=== PATIENT | female | born 1940 | race Caucasian/White ===

== ENCOUNTER 2018-01-26 02:49 | Emergency (ER) | payer OTHER ==
[~2018-01-26] VITALS: Ht 167.6 cm; Wt 79.4 kg
[2018-01-26 03:15] VITALS: BP 127/56
[2018-01-26 04:13] LABS: Urine Blood 3+ /uL (Negative); Urine Specific Gravity 1.018 (1.001-1.035); Urine WBC 154 /hpf (0 - 5); Urine WBC Clumps PRESENT /hpf (None Seen)
[2018-01-26 04:16] LABS: Urine Bacteria FEW /hpf (None Seen)
[2018-01-26] MEDS ORDERED: cefTRIAXone SOD 1,000 MG VL IM ONE (05:45)
[2018-01-26] MEDS ORDERED: PHENAZOPYRIDINE HCL 100 MG TAB PO ONE (05:45)
== END 2018-01-26 05:53 | disposition home or self-care (01) ==
LOC: ER 03:00
DX: N39.0 Urinary tract infection, site not specified (principal)
CPT/HCPCS: 81001; 99283; J0696

== ENCOUNTER → 2018-02-25 | Outpatient (CLI) | payer OTHER ==
[2018-02-25 12:04] LABS: Urine Blood Negative /uL (Negative); Urine Specific Gravity 1.011 (1.001-1.035)
[2018-02-25 12:15] LABS: Basophils # (auto) 0 uL; Basophils % (auto) 0.5 % (0.0-2.0); Eosinophils # (auto) 0.2 uL; Hematocrit 46.7 % (36.0-46.0); Lymphocytes # (auto) 2.5 uL; Lymphocytes % (auto) 31.5 % (10.0-50.0); Mean Corpuscular Hemoglobin 32.1 pg (28.0-32.0); Mean Corpuscular Hgb Conc. 34.3 g/dL (32.0-36.0); Mean Corpuscular Volume 93.5 fL (80.0-100.0); Monocytes # (auto) 0.7 uL; Monocytes % (auto) 8.4 % (0.0-12.0); Neutrophils # (auto) 4.5 uL; Neutrophils % (auto) 56.6 % (37.0-80.0); Nucleated Red Blood Cells % 0.2 %; Platelet Count (auto) 275 10^3/uL (140-450); Red Blood Cells 4.99 10^6/uL (4.0-5.20); Red Cell Distribution Width 13.9 % (11.8-14.3)
[2018-02-25 13:01] LABS: Cholesterol 228 mg/dL (< 200); HDL Cholesterol 59 mg/dL (40-59); LDL Cholesterol 163 mg/dL (< 100); Triglycerides 126 mg/dL (< 150)
== END | disposition home or self-care (01) ==
LOC: LAB 11:44
DX: Z13.1 Encounter for screening for diabetes mellitus (principal); Z76.89 Persons encountering health services in other specified circumstances
CPT/HCPCS: 36415; 80061; 81003; 83036; 84439; 84443; 85025

== ENCOUNTER 2020-09-14 06:31 | Emergency (ER) | payer OTHER ==
[~2020-09-14] VITALS: Ht 170.2 cm; Wt 79.4 kg
[2020-09-14 07:29] LABS: Basophils # (auto) 0 10 ^3/uL (0-0.2); Basophils % (auto) 0.4 % (0.0-2.0); Eosinophils # (auto) 0.1 10 ^3/uL (0-0.8); Eosinophils % (auto) 0.7 % (0.0-7.0); Hematocrit 42.2 % (36.0-46.0); Hemoglobin 14.5 g/dL (12.2-16.2); Lymphocytes # (auto) 1.1 10 ^3/uL (0.4-5.4); Lymphocytes % (auto) 11.2 % (10.0-50.0); Mean Corpuscular Hemoglobin 31.4 pg (28.0-32.0); Mean Corpuscular Hgb Conc. 34.4 g/dL (32.0-36.0); Mean Corpuscular Volume 91.3 fL (80.0-100.0); Monocytes # (auto) 0.8 10 ^3/uL (0-1.3); Monocytes % (auto) 8.6 % (0.0-12.0); Neutrophils # (auto) 7.8 10 ^3/uL (1.6-8.6); Neutrophils % (auto) 79.1 % (37.0-80.0); Nucleated Red Blood Cells % 0.4 %; Platelet Count (auto) 258 10^3/uL (140-450); Red Blood Cells 4.62 10^6/uL (4.0-5.20); Red Cell Distribution Width 13.1 % (11.8-14.3); White Blood Cell 9.9 10^3/uL (4.4-10.8)
[2020-09-14 07:53] LABS: Calcium 9.1 mg/dL (8.5-10.1)
[2020-09-14 07:56] LABS: BUN/Creatinine Ratio 20.6; Bilirubin, Total 0.9 mg/dL (0.2-1.0); Total Protein 7.2 g/dL (6.4-8.2)
[2020-09-14 08:08] LABS: Urine Bacteria NONE SEEN /hpf (None Seen); Urine Blood 3+ /uL (Negative); Urine WBC 1288 /hpf (0 - 5); Urine WBC Clumps PRESENT /hpf (None Seen)
[2020-09-14 08:11] LABS: Urine Specific Gravity 1.022 (1.001-1.035)
[2020-09-14] MEDS ORDERED: cefTRIAXone 1GM/50ML D5W 50 ML IV ONE (08:30)
[2020-09-14 09:00] VITALS: BP 110/44
[2020-09-14 09:07] LABS: INR 1.03 (0.9-1.15); Partial Thromboplastin Time 27.7 sec (23.0-31.2)
== END 2020-09-14 09:09 | disposition home or self-care (01) ==
LOC: ER 06:31
DX: N30.80 Other cystitis without hematuria (principal); N39.0 Urinary tract infection, site not specified
CPT/HCPCS: 36415; 80053; 81001; 85025; 85610; 85730; 96365; 99285; J0696

== ENCOUNTER 2022-05-04 07:47 | Day surgery (SDC) | payer OTHER ==
[~2022-05-04] VITALS: Ht 170.2 cm; Wt 77.1 kg
[2022-05-04] VITALS (9 sets, daily range): BP systolic 98–121; BP diastolic 44–56
[~2022-05-04 07:47] MED LIST: ATOR20TA50 PO; OMEP-263 PO; POM; [UNRECOGNIZED DRUG - CODE] OP
[2022-05-04] MEDS ORDERED: HEPARIN SODIUM (PORCINE) 5000 UNITS/ML 1ML VIAL ONE (09:12)
[2022-05-04] MEDS ORDERED: ANGIOMAX 250 MG VIAL IV ONE (09:12)
[2022-05-04] MEDS ORDERED: fentaNYL CITRATE 100 MCG/2 ML VL ONE (09:13)
[2022-05-04] MEDS ORDERED: MIDAZOLAM HCL 2MG/2ML 2ml VIAL (1mg/ml) ONE (09:13)
[2022-05-04] MEDS ORDERED: VERAPAMIL 2.5MG/ML INJ 2ML VIAL IV ONE (09:13)
[2022-05-04] MEDS ORDERED: SODIUM CHL 0.9% 0 ML ONE (09:13)
[2022-05-04] MEDS ORDERED: LIDOCAINE 2%HCL (LOCAL ANESTH.) INJ 20ML MDV ONE (09:14)
== END 2022-05-04 12:05 | disposition home or self-care (01) ==
LOC: CATH 07:47
PROVIDERS: ATTEND Internal Medicine Cardiovascular Disease
DX: R06.09 Other forms of dyspnea (principal); R94.39 Abnormal result of other cardiovascular function study; E78.5 Hyperlipidemia, unspecified; M19.90 Unspecified osteoarthritis, unspecified site; I47.1 Supraventricular tachycardia; G43.909 Migraine, unspecified, not intractable, without status migrainosus; Z90.710 Acquired absence of both cervix and uterus; Z88.1 Allergy status to other antibiotic agents; Z20.822 Contact with and (suspected) exposure to COVID-19; Z91.040 Latex allergy status; Z88.8 Allergy status to other drugs, medicaments and biological substances; Z98.890 Other specified postprocedural states; Z79.899 Other long term (current) drug therapy
CPT/HCPCS: 93458; C1769; C1887; C1894; J1644; J2250; J3010; U0003; 99152